=== PATIENT | male | born 1955 | race Caucasian/White ===

== ENCOUNTER → 2018-05-02 | Outpatient (CLI) | payer BC ==
[~2018-05-02] MED LIST: BUPIVACAINE MPF 0.25% 10 ML VIAL.; IOHEXOL 180 MG/ML 10 ML VIAL.; LIDOCAINE 1% PF 2 ML VIAL.; methylPREDNISolone ACETATE 40 MG/ML VIAL.; methylPREDNISolone ACETATE 80 MG/ML VIAL.
== END | disposition home or self-care (01) ==
LOC: PNCL 10:00
DX: S46.011A Strain of muscle(s) and tendon(s) of the rotator cuff of right shoulder, initial encounter (principal); S46.012A Strain of muscle(s) and tendon(s) of the rotator cuff of left shoulder, initial encounter; M25.512 Pain in left shoulder; M25.511 Pain in right shoulder; Z88.1 Allergy status to other antibiotic agents; W19.XXXA Unspecified fall, initial encounter; Y93.89 Activity, other specified; Y92.89 Other specified places as the place of occurrence of the external cause; Y99.8 Other external cause status
CPT/HCPCS: 20610; 77002; J1030; J1040; J3490; Q9965

== ENCOUNTER → 2018-12-18 | Outpatient (CLI) | payer BC ==
[2014-06-04 14:20] VITALS: BP 136/88
[~2018-12-18] MED LIST changes: +ASCO1TAB5 PO; +ASPI-612 PO; +ATEN25TA PO; -BUPIVACAINE MPF 0.25% 10 ML VIAL.; +BUPIVACAINE MPF 0.25% 10 ML VIAL. ONE; +BYSTOLIC20 MG PO; +DILT240C32 PO; +DULA0.75 SQ; +GLIM4TAB2 PO; -IOHEXOL 180 MG/ML 10 ML VIAL.; +IOHEXOL 180 MG/ML 10 ML VIAL. ONE; +LACT1CAP8 PO; +LEVO100T5 PO; -LIDOCAINE 1% PF 2 ML VIAL.; +METF500T16 PO; +MULT1TAB52 PO; +PANT20TA2 PO; +SITA1TAB11 PO; +TAMS0.4C97 PO; +TEST5GEL TD; +UBID30CA9 PO; -methylPREDNISolone ACETATE 40 MG/ML VIAL.; -methylPREDNISolone ACETATE 80 MG/ML VIAL.; +methylPREDNISolone ACETATE 80 MG/ML VIAL. ONE
--- NOTE | 2018-12-18 15:00 | PAIN ---
DATE OF SERVICE: 12/18/2018 PROGRESS NOTE FOR PAIN CLINIC DIAGNOSES: 1. Bilateral shoulder joint pain, right greater than left with rotator cuff injury. 2. Low back with myofascial pain. HISTORY OF PRESENT ILLNESS: The patient is a 63-year-old male who returns for followup status post bilateral shoulder joint injections on 05/02/2018 with the last time he was seen. The patient did very well with this with about 80% improvement until the last month or so, has had increased pain in the right shoulder only and left is very minimal. The patient reports that due to working, repetitive motions of the right arm, reaching above his head with his right hand, getting dressed in the morning, putting his arm through a sleeve became very painful over the past month or so. The patient reports it is an 8 on a scale of 10 at its worst, 8 on average, 4 at its least and is 8 today. The patient reports that the pain is awakening him from sleep at night several times but not every night. If so, he lies on his right side. The patient reports his muscles have been getting tight in the base of the neck as well and the shoulder on the right since the pain returned about a month ago. The patient reports no new motor or sensory deficits and no new bowel or bladder incontinence. The patient reports the pain is aching, sharp, shooting, stabbing with numbness and tingling in the shoulder and into the elbow and the anterior aspect of the right arm becoming more constant, more radiating and more unbearable. PHYSICAL EXAMINATION: VITAL SIGNS: The patient's blood pressure 140/97, pulse 107, respirations 18 and temperature 97.3 degrees Fahrenheit. Weight is 289 pounds. GENERAL: The patient is awake, alert, oriented, appropriate and very pleasant demeanor. HEENT: Head shows normocephalic and atraumatic. Extraocular movements are intact and symmetrical. Oral cavity: Mucous membranes are moist and pink. Dentition intact. NECK: Shows anterior throat supple without palpable lymphadenopathy noted. Swallow reflex symmetrical. CHEST: Shows normal on inspection. Breath sounds are clear to auscultation bilaterally. HEART: Shows S1 and S2 clear. No murmurs auscultated. ABDOMEN: Soft, nontender and nondistended. No palpable organomegaly is noted. No rebound or guarding demonstrated. BACK: Shows spine grossly in the midline. Normal-appearing thoracic kyphosis as well as lumbar lordotic curvature. Cervical lordotic curvature is maintained. The patient's neck shows good rotational motion of the cervical spine, both laterally greater than 45 degrees closer to 90 degrees right and left as well as full extension, full flexion without significant limitation or pain reported. EXTREMITIES: The patient's upper extremities show the patient is guarding his right arm against this side and trapezius is contracted with that shoulder, right higher than left secondary to pain and discomfort. Deep tendon reflexes are 2+ in the biceps tendons. Spraying Machine Operator strength is 5/5 with hearing aid mechanic strength bilaterally. The patient shows 3 on a scale of 5 on the right bicep and tricep flexion secondary to pain, not secondary to ability to move. Peripheral pulses are 2+ radial distribution. No peripheral edema is noted bilaterally. The patient's right shoulder shows tenderness with abduction even with approximately 30-45 degrees away from the midline and abduction on the right side. Shoulder shrug is painful as well. There is palpable tenderness over the anterior aspect of the shoulder, anterior deltoid, lateral deltoid and some in the scapular region as well but without radiation. Options were discussed with the patient. The patient's old chart was reviewed as well as his current medication regimen updated. Current review of systems updated today as well. We will proceed with a right-sided intra-articular shoulder joint injection using C-arm fluoroscopic guidance today with risks discussed including, but not limited to bleeding, infection, possibility of intravascular injection sequelae, spread of local anesthetic and numbness, side effects of steroid medication as well as exposure to fluoroscopy and poor results regarding pain control. The patient understands and wished to proceed. The patient will return to the clinic in approximately 2 weeks or as necessary, would like to call for his next appointment. The patient was counseled as to return appointment as well as activity level and side effects to be aware of. DIAGNOSIS: Right shoulder joint pain with primary osteoarthritis, shoulder joint. PROCEDURE: Right intra-articular shoulder joint injection using C-arm fluoroscopic guidance under sterile prep and drape using local anesthetic. MEDICATION INJECTED: A total of 80 mg Depo-Medrol plus 3 mL of 0.25% bupivacaine and 1.5 mL of Isovue for contrast. CONDITION AT DISCHARGE: Stable. The patient tolerated the procedure well and had no complications. ANTIONE PALMA MD DR: Lg JOB#: [id number] / [id number]
== END | disposition home or self-care (01) ==
LOC: PNCL 13:15
PROVIDERS: ATTEND Anesthesiology
DX: M19.011 Primary osteoarthritis, right shoulder (principal); M79.18 Myalgia, other site; Z88.1 Allergy status to other antibiotic agents
CPT/HCPCS: 20610; 77002; J1040; J3490; Q9965